=== PATIENT | female | born 1990 | race Caucasian/White ===

== ENCOUNTER 2017-08-17 12:47 | Emergency (ER) | payer MEDICAID ==
[2015-05-02 11:10] VITALS: BMI 24.2
[~2017-08-17 12:47] MED LIST: AMBIEN10 MG PO; BUSPAR5 MG PO; DEMEROL50 MG PO; HYDROCODONE-APA1 TAB PO; IBUPROFEN600 MG PO; PRENATAL COMPLE1 TAB PO; ZOLOFT25 MG PO
== END 2017-08-17 17:28 | disposition home or self-care (01) ==
LOC: D.ER 12:47
DX: R09.1 Pleurisy (principal); F17.200 Nicotine dependence, unspecified, uncomplicated; R07.9 Chest pain, unspecified; R05 Cough

== ENCOUNTER → 2019-05-11 08:51 | Outpatient (CLI) | payer MEDICAID ==
[2015-05-02 11:10] VITALS: BMI 24.2
== END | disposition home or self-care (01) ==
LOC: D.US 08:51
PROVIDERS: ATTEND Emergency Medicine
DX: E04.1 Nontoxic single thyroid nodule (principal)

== ENCOUNTER 2019-07-24 08:46 | Emergency (ER) | payer MEDICAID ==
[~2019-07-24] VITALS: Ht 157.5 cm; Wt 60.8 kg
[2019-07-24 08:54] VITALS: Ht 157.5 cm; Wt 60.8 kg
[2019-07-24] MEDS ORDERED: AMOXICILLIN500 M1 PO (08:57)
[2019-07-24 09:26] LABS: BASOPHILS 0.6 % (0-2); EOSINOPHILS 2.8 % (0-7); HEMATOCRIT 40.3 % (36.0-48.0); HEMOGLOBIN 13.6 g/dL (12-16); IMMATURE GRANULOCYTES 0.4 % (0-5); LYMPHOCYTES 25.2 % (15-50); MCH 29.1 pg (26.0-34.0); MCHC 33.7 g/dL (31.0-37.0); MCV 86.1 fL (80.0-100.0); MEAN PLATELET VOLUME 9.1 fL (7.4-10.4); MONOCYTES 11.4 % (2-11); NEUTROPHILS 59.6 % (40-80); PLATELET COUNT 358 10x3/uL (130-400); RBC 4.68 10x6/uL (4.00-5.40); RDW 15.7 % (11.5-14.5)
[2019-07-24 09:34] LABS: COLOR YELLOW (YELLOW)
[2019-07-24 09:35] LABS: APPEARANCE CLEAR (CLEAR); BACTERIA MODERATE /hpf (NONE SEEN); BILIRUBIN NEGATIVE (NEGATIVE); EPITHELIAL CELLS 0-5 /hpf (0-5); GLUCOSE NEGATIVE (NEGATIVE); KETONE NEGATIVE (NEGATIVE); MUCUS <1+ /lpf (NONE SEEN); NITRITE NEGATIVE (NEGATIVE); PROTEIN NEGATIVE (NEGATIVE); RED CELLS - URINE 0-5 /hpf (0-5); SPECIFIC GRAVITY 1.015 (1.005-1.020); UROBILINOGEN NORMAL (NORMAL); WHITE CELLS - URINE RARE /hpf (0-5)
[2019-07-24 09:50] LABS: HCG URINE NEGATIVE (NEGATIVE)
[2019-07-24 09:58] LABS: ALBUMIN 4.1 g/dL (3.4-5.0); ALKALINE PHOSPHATASE 69 U/L (46-116); ALT (SGPT) 22 U/L (10-68); AMYLASE - SERUM 51 U/L (25-115); BILIRUBIN - TOTAL 0.21 mg/dL (0.2-1.3); CALC OSMOLALITY 282 mosm/kg (275-300); CALCIUM 9.5 mg/dL (8.5-10.1); CARBON DIOXIDE 27.1 mmol/L (21.0-32.0); CHLORIDE - SERUM 103 mmol/L (98-107); CREATININE - SERUM 0.8 mg/dL (0.6-1.3); GLUCOSE 88 mg/dL (74-106); LIPASE 135 U/L (73-393); POTASSIUM - SERUM 4.8 mmol/L (3.5-5.1); PROTEIN - SERUM 7.6 g/dL (6.4-8.2); SODIUM 142 mmol/L (136-145); UREA NITROGEN 14 mg/dL (7-18); eGFR NON AFRICAN AMERICAN > 90 mL/min (90-120)
[2019-07-24] MEDS ORDERED: NAPROSYN500 MG PO (10:58)
[2019-07-24] MEDS ORDERED: PREDNISONE20 MG PO (10:58)
[2019-07-24 11:12] VITALS: BP 124/79
[2019-07-24 12:20] LABS: ERYTHROCYTE SEDIMENTATION RATE 7 mm/hr (0-20)
[2019-07-28 22:06] LABS: CHLAMYDIA TRACHOMATIS, NAA Negative (Negative)
== END 2019-07-24 11:35 | disposition home or self-care (01) ==
LOC: D.ER 08:46
PROVIDERS: Family Medicine
DX: M85.38 Osteitis condensans, other site (principal); N76.0 Acute vaginitis; B96.89 Other specified bacterial agents as the cause of diseases classified elsewhere; N20.0 Calculus of kidney

== ENCOUNTER 2020-03-11 13:15 | Emergency (ER) | payer MEDICAID ==
[~2020-03-11] VITALS: Ht 157.5 cm; Wt 56.8 kg
[~2020-03-11 13:15] MED LIST changes: +AMOXICILLIN500 M1 PO; +NAPROSYN500 MG PO; +PREDNISONE20 MG PO
[2020-03-11 13:29] VITALS: Ht 157.5 cm; Wt 56.8 kg
[2020-03-11 13:56] LABS: UDS - AMPHET POSITIVE QUAL (NEGATIVE); UDS - BARB NEGATIVE QUAL (NEGATIVE); UDS - BENZO NEGATIVE QUAL (NEGATIVE); UDS - COCAINE NEGATIVE QUAL (NEGATIVE); UDS - OPIATE NEGATIVE QUAL (NEGATIVE); UDS - PCP NEGATIVE QUAL (NEGATIVE); UDS - THC POSITIVE QUAL (NEGATIVE)
[2020-03-11 14:13] LABS: ANION GAP 12.7 mmol/L (8-16); CALCIUM 9.2 mg/dL (8.5-10.1); CARBON DIOXIDE 26.8 mmol/L (21.0-32.0); POTASSIUM - SERUM 3.5 mmol/L (3.5-5.1)
[2020-03-11 14:20] LABS: ALBUMIN 4.5 g/dL (3.4-5.0); BILIRUBIN - TOTAL 0.81 mg/dL (0.2-1.3); PROTEIN - SERUM 8.5 g/dL (6.4-8.2)
[2020-03-11 14:37] LABS: BACTERIA MANY /hpf (NEGATIVE); BILIRUBIN NEGATIVE (NEGATIVE); EPITHELIAL CELLS 0-5 /hpf (0-5); GLUCOSE NEGATIVE (NEGATIVE); KETONE LARGE mg/dL (NEGATIVE); NITRITE POSITIVE (NEGATIVE); SPECIFIC GRAVITY 1.025 (1.005-1.020); UROBILINOGEN NORMAL (NORMAL); WHITE CELLS - URINE 0-5 /hpf (NEGATIVE)
[2020-03-11 15:10] VITALS: BP 155/96
[2020-03-11 15:27] LABS: BASOPHILS 0.4 % (0-2); EOSINOPHILS 0.7 % (0-7); HEMATOCRIT 44.4 % (36.0-48.0); HEMOGLOBIN 14.7 g/dL (12-16); IMMATURE GRANULOCYTES 0.3 % (0-5); MCH 30.6 pg (26.0-34.0); MCHC 33.1 g/dL (31.0-37.0); MCV 92.3 fL (80.0-100.0); MEAN PLATELET VOLUME 9.3 fL (7.4-10.4); MONOCYTES 12.3 % (2-11); NEUTROPHILS 63.3 % (40-80); PLATELET COUNT 381 10x3/uL (130-400); RBC 4.81 10x6/uL (4.00-5.40); RDW 13.7 % (11.5-14.5); WBC 13.7 10x3/uL (4.8-10.8)
[2020-03-11] MEDS ORDERED: MACROBID100 MG PO (15:27)
== END 2020-03-11 15:14 | disposition home or self-care (01) ==
LOC: D.ER 13:15
PROVIDERS: Emergency Medicine
DX: R44.0 Auditory hallucinations (principal); R44.1 Visual hallucinations; F15.10 Other stimulant abuse, uncomplicated

== ENCOUNTER 2020-05-16 09:56 | Inpatient (IN) | payer MEDICAID ==
[~2020-05-16] VITALS: Ht 157.5 cm; Wt 59.1 kg
[~2020-05-16 09:56] MED LIST changes: +MACROBID100 MG PO
[2020-05-16] MEDS ORDERED: BENZTROPINE MESY1 MG PO (10:09)
[2020-05-16] MEDS ORDERED: GEODON40 MG PO (10:09)
[2020-05-16] MEDS ORDERED: ATIVAN1 MG PO (10:09)
[2020-05-16 10:30] LABS: HEMATOCRIT 36.7 % (36.0-48.0); HEMOGLOBIN 12.1 g/dL (12-16); MCH 29.3 pg (26.0-34.0); MCV 88.9 fL (80.0-100.0); MEAN PLATELET VOLUME 8.3 fL (7.4-10.4); PLATELET COUNT 409 10x3/uL (130-400); RBC 4.13 10x6/uL (4.00-5.40); RDW 13.4 % (11.5-14.5); WBC 15.3 10x3/uL (4.8-10.8)
[2020-05-16 10:35] LABS: HCG URINE NEGATIVE (NEGATIVE)
[2020-05-16 10:43] LABS: BACTERIA FEW /hpf (NEGATIVE); BILIRUBIN NEGATIVE (NEGATIVE); EPITHELIAL CELLS 0-5 /hpf (0-5); GLUCOSE NEGATIVE (NEGATIVE); KETONE NEGATIVE (NEGATIVE); NITRITE NEGATIVE (NEGATIVE); RED CELLS - URINE 0-5 /hpf (0-5); UROBILINOGEN 4 mg/dL (NORMAL)
[2020-05-16 10:45] LABS: ALBUMIN 2.7 g/dL (3.4-5.0); ALKALINE PHOSPHATASE 95 U/L (30-120); ALT (SGPT) 19 U/L (10-68); AMYLASE - SERUM 21 U/L (25-115); BILIRUBIN - TOTAL 0.44 mg/dL (0.2-1.3); CALC OSMOLALITY 269 mosm/kg (275-300); CALCIUM 9.3 mg/dL (8.5-10.1); CARBON DIOXIDE 32.4 mmol/L (21.0-32.0); CHLORIDE - SERUM 94 mmol/L (98-107); GLUCOSE 139 mg/dL (74-106); PROTEIN - SERUM 7.8 g/dL (6.4-8.2); SODIUM 135 mmol/L (136-145); TROPONIN-I < 0.017 ng/mL (0.000-0.060); UREA NITROGEN 7 mg/dL (7-18); eGFR NON AFRICAN AMERICAN 70 mL/min (90-120)
[2020-05-16 10:47] LABS: LIPASE 46 U/L (73-393)
[2020-05-16 10:48] LABS: POTASSIUM - SERUM 2.9 mmol/L (3.5-5.1)
[2020-05-16] MEDS ORDERED: PYRIDIUM100 MG PO (12:14)
[2020-05-16] MEDS ORDERED: CIPRO500 MG PO (12:14)
--- NOTE | 2020-05-16 13:50 | NUR ---
PT ADMITTED TO ROOM 2208 FROM ER. RESP EVEN AND UNLABORED. LUNCH TRAY BROUGHT INTO ROOM VIA DIETARY. PT IMMEDIATELY REQUEST IV TO RIGHT AC BE DISCONTINUED AND MOVED TO LEFT ARM. IV RESITED TO LEFT FOREARM X 2 STICKS. 20G WITH GOOD BLOOD RETURN, EASILY FLUSHED. NS @ 100ML/HR PUT TO INFUSE VIA PUMP. PT REPORTS PAIN TO RIGHT FLANK AND ACROSS BACK, BUT MORE PAIN TO RIGHT FLANK X 3-4 DAYS. DENIES NAUSEA OR VOMITING. ORIENTED TO BED, CL AND ROOM. DENIES FURTHER NEEDS AT THIS TIME. CL WITHIN REACH. ENCOURAGED TO CALL WITH NEEDS. CONTINUE POC
[2020-05-16 14:23] VITALS: BP 112/62; Ht 157.5 cm; Wt 59.1 kg
[2020-05-16 16:15] VITALS: BP 106/62
--- NOTE | 2020-05-16 16:29 | NUR ---
ENTERED PT ROOM, EDUCATED PT REGARDING ORDERS FOR IN AND OUT CATH FOR URINE SAMPLE FOR CULTRE. PT IMMEDIATELY REFUSES, STATING "I HAVE BEEN THROUGH THIS BEFORE AND I AM NOT DOING IT AGAIN." ATTEMPTED TO EDUCATE PT REGARDING NEED FOR I&O CATH. HOWEVER, PT CONTINUED TO RAMBLE ON REASONING TO WHY SHE WOULD NOT ALLOW IN AND OUT CATH. CONTACTED JA[facility] REGARDING PT REFUSAL. NURSE INSTRUCTED TO WASH PT HAN AREA WELL AND CATCH A URINE MIDSTREAM. INSTRUCTED PT OF ORDERS FOR THIS. PT BECOMES AGITATED AND TEARFUL STATES "NO ONE IS TOUCHING ME DOWN THERE. I HAVE BEEN RAPED 5 OR SIX TIMES BY MEN AND WOMEN BOTH AND NO ONE IS TOUCHING ME. NO ONE! IM AN ADULT I KNOW HOW TO WASH AND CATCH A URINE YOU DON'T HAVE TO DO IT FOR ME!" INSTRUCTED PT TO CALL WHEN URGE TO URINATE AND STAFF WOULD ASSIST. CL WITHIN REACH.
--- NOTE | 2020-05-16 20:20 | NUR ---
LYING IN BED. ALERT AND ORIENTED X4. RESP EVEN AND NONLABORED. ANXIOUS, RESTLESS, IRRITABLE WITH STAFF. REFUSED GEODON, ATIVAN AND COLACE. STATES SHE ALREADY TOOK THE ATIVAN. ASKED WHEN AND SHE STATED, "I TOOK IT OUT OF MY PURSE A LITTLE WHILE AGO." INFORMED PT THAT SHE WAS NOT ALLOWED TO TAKE OWN MEDS AND THAT THE MEDS WOULD NEED TO BE SENT HOME OR SENT TO PHARMACY. SHE GAVE STAFF ZIPRASIDONE, LORAZEPAM AND BENTROPINE AND MEDS WERE COUNTED PER THIS DRAUGHTSMAN AND SOLE CLAY AND PLACED IN MEDICATION ENVELOPE FOR PHARMACY TO KEEP. PT HAS NS @ 100 MLHR INFUSING IN LT FOREARM WITHOUT DIFF. PT ALSO REFUSED BENADRYL FOR ITCHING. RATES PAIN IN RT FLANK 8. SR ELEVATED X2. CL IN REACH.
[2020-05-16 20:27] VITALS: BP 96/64
[2020-05-16 21:34] LABS: UDS - AMPHET NEGATIVE QUAL (NEGATIVE); UDS - BARB NEGATIVE QUAL (NEGATIVE); UDS - BENZO NEGATIVE QUAL (NEGATIVE); UDS - COCAINE NEGATIVE QUAL (NEGATIVE); UDS - OPIATE POSITIVE QUAL (NEGATIVE); UDS - PCP NEGATIVE QUAL (NEGATIVE); UDS - THC POSITIVE QUAL (NEGATIVE)
[2020-05-17] VITALS (7 sets, daily range): BP systolic 97–111; BP diastolic 46–74
--- NOTE | 2020-05-17 03:05 | NUR ---
RESTING WITH EYES CLOSED. RESP EVEN AND NONLABORED. NO DISTRESS. CL IN REACH.
--- NOTE | 2020-05-17 03:40 | NUR ---
REQUESTS PAIN MED. STATES, "I DONT WANT THE HYDROCODONE. IT DOESNT WORK." MEDICATED WITH DILAUDID FOR C/O RT FLANK PAIN. REFUSED ALL MEDS THIS SHIFT EXCEPT FOR PAIN MEDS. CL IN REACH. NO DISTRESS.
[2020-05-17 07:45] LABS: BASOPHILS 0.2 % (0-2); EOSINOPHILS 1.3 % (0-7); HEMATOCRIT 29.8 % (36.0-48.0); IMMATURE GRANULOCYTES 0.4 % (0-5); LYMPHOCYTES 19.6 % (15-50); MCHC 32.2 g/dL (31.0-37.0); MEAN PLATELET VOLUME 8.5 fL (7.4-10.4); MONOCYTES 11.9 % (2-11); NEUTROPHILS 66.6 % (40-80); PLATELET COUNT 348 10x3/uL (130-400); RBC 3.31 10x6/uL (4.00-5.40); RDW 14.1 % (11.5-14.5)
[2020-05-17 07:56] LABS: HEMOGLOBIN 9.6 g/dL (12-16); WBC 11.1 10x3/uL (4.8-10.8)
[2020-05-17 08:24] LABS: ALBUMIN 2.1 g/dL (3.4-5.0); ALKALINE PHOSPHATASE 71 U/L (30-120); ALT (SGPT) 17 U/L (10-68); CALC OSMOLALITY 280 mosm/kg (275-300); CALCIUM 7.9 mg/dL (8.5-10.1); CARBON DIOXIDE 28.7 mmol/L (21.0-32.0); CHLORIDE - SERUM 107 mmol/L (98-107); GLUCOSE 105 mg/dL (74-106); SODIUM 142 mmol/L (136-145); UREA NITROGEN 6 mg/dL (7-18)
[2020-05-17 08:38] LABS: BILIRUBIN - TOTAL 0.12 mg/dL (0.2-1.3)
[2020-05-17 08:39] LABS: CREATININE - SERUM 0.7 mg/dL (0.6-1.3); POTASSIUM - SERUM 3.5 mmol/L (3.5-5.1); PROTEIN - SERUM 5.4 g/dL (6.4-8.2); eGFR NON AFRICAN AMERICAN > 90 mL/min (90-120)
--- NOTE | 2020-05-17 20:05 | NUR ---
SITTING UP IN BED. ALERT AND ORIENTED X4. C/O PAIN IN FLANK RATING 7. NOT TIME FOR DILAUDID YET. NS WITH 20 MEQ KCL @ 100 ML/HR INFUSING IN LT FOREARM. REFUSED SCDS. RESP EVEN AND NONLABORED. ATTN SEEKING AND IRRITABLE. SR ELEVATED X2. CL IN REACH.
--- NOTE | 2020-05-17 21:10 | NUR ---
MEDICATED WITH DILAUDID FOR C/O FLANK PAIN. CL IN REACH.
[2020-05-18] VITALS: BP 99/64
--- NOTE | 2020-05-18 02:23 | NUR ---
HAS RESTED WELL TONIGHT. LYING IN BED WITH EYES CLOSED. RESP NONLABORED. NO DISTRESS. CL IN REACH.
--- NOTE | 2020-05-18 03:13 | NUR ---
MEDICATED WITH DILAUDID FOR C/O FLANK PAIN. CL IN REACH.
[2020-05-18 04:00] VITALS: BP 111/55
[2020-05-18 05:22] LABS: BASOPHILS 0.1 % (0-2); HEMATOCRIT 29.1 % (36.0-48.0); HEMOGLOBIN 9.3 g/dL (12-16); IMMATURE GRANULOCYTES 0.4 % (0-5); LYMPHOCYTES 22.9 % (15-50); MCH 29.1 pg (26.0-34.0); MCV 90.9 fL (80.0-100.0); MEAN PLATELET VOLUME 9.1 fL (7.4-10.4); MONOCYTES 10.3 % (2-11); NEUTROPHILS 64.3 % (40-80); PLATELET COUNT 401 10x3/uL (130-400); RDW 14.3 % (11.5-14.5); WBC 11.3 10x3/uL (4.8-10.8)
[2020-05-18 05:55] LABS: % SATURATION 14 % (15-55); IRON 25 ug/dl (35-150); TOTAL IRON BIND CAPACITY 178 ug/dl (260-445); UNSAT IRON BIND CAPACITY 153 ug/dl (150-375)
[2020-05-18 06:22] LABS: ALKALINE PHOSPHATASE 69 U/L (30-120); ALT (SGPT) 17 U/L (10-68); BILIRUBIN - TOTAL 0.12 mg/dL (0.2-1.3); CALC OSMOLALITY 275 mosm/kg (275-300); CARBON DIOXIDE 29.6 mmol/L (21.0-32.0); CHLORIDE - SERUM 106 mmol/L (98-107); CREATININE - SERUM 0.7 mg/dL (0.6-1.3); FERRITIN 111 ng/mL (3-244); GLUCOSE 91 mg/dL (74-106); POTASSIUM - SERUM 3.5 mmol/L (3.5-5.1); PROTEIN - SERUM 5.9 g/dL (6.4-8.2); SODIUM 140 mmol/L (136-145); eGFR NON AFRICAN AMERICAN > 90 mL/min (90-120)
--- NOTE | 2020-05-18 06:23 | NUR ---
RESTING QUIETLY WITH EYES CLOSED. NO DISTRESS. CL IN REACH.
[2020-05-18 06:28] LABS: UREA NITROGEN 4 mg/dL (7-18)
[2020-05-18 09:10] VITALS: BP 106/68
[2020-05-18] MEDS ORDERED: NICODERM CQ1 EAC1 TRANSDERM (10:54)
[2020-05-18] MEDS ORDERED: LEVAQUIN750 MG PO (10:55)
[2020-05-18] MEDS ORDERED: HYDROCODON-ACE1 EAC2 PO ×2 (12:10→12:13)
--- NOTE | 2020-05-18 13:39 | MORECARE ---
CASE MANAGEMENT DISCHARGE SUMMARY PATIENT: ILYA DONNELLY UNIT: [id number] ADM DATE: 05/16/20 AGE: 30 : [birth year] SEX: F ROOM/BED: D.2200 AUTHOR: JOSE MENDEZ PHYSICIAN: REFERRING PHYSICIAN: JOSSE MUHAMMAD DO DATE OF SERVICE: 05/18/20 Discharge Plan Patient Name: ILYA DONNELLY Facility: [facility]:[place] : 1990 Planned Disposition: Home or Self Care Anticipated Discharge Date: Discharge Date: Expected LOS: Initial Reviewer: [email or web address] Initial Review Date: 05/16/2020 Generated: 05/18/20 2:38 pm DCPIA - Discharge Planning Initial Assessment Updated by [email or web address]: Naila Hardin on 05/18/20 1:38 pm * Is the patient Alert and Oriented? Yes * How many steps to enter\exit or inside your home? * PCP [facility] * Pharmacy [facility] [address] * Preadmission Environment Home Alone * ADLs Independent * Equipment None * Additional services required to return to the preadmission environment? No * Can the patient safely return to the preadmission environment? Yes * Has this patient been hospitalized within the prior 30 days at any hospital? No Patient Name: ILYA DONNELLY Page [id number] at 1339 All edits/amendments must be made on the electronic document DICTATION DATE: 05/18/201338 PUMP TENDER: MIGUEL 05/18/20 1339 RPT#: [id number] DC DATE: STATUS: ADM IN [facility] [address] [place] [address] END OF REPORT
--- NOTE | 2020-05-18 13:47 | MORECARE ---
CASE MANAGEMENT DISCHARGE SUMMARY PATIENT: ILYA DONNELLY UNIT: [id number] ADM DATE: 05/16/20 AGE: 30 : [birth year] SEX: F ROOM/BED: D.9944 AUTHOR: ANDREADOC PHYSICIAN: REFERRING PHYSICIAN: JOSSE MUHAMMAD DO DATE OF SERVICE: 05/18/20 Discharge Plan Patient Name: ILYA DONNELLY Facility: [facility]:[place] : 1990 Planned Disposition: Home or Self Care Anticipated Discharge Date: Discharge Date: Expected LOS: Initial Reviewer: [email or web address] Initial Review Date: 05/16/2020 Generated: 05/18/20 2:46 pm Comments DCP- Discharge Planning Updated by [id number]: Naila Hardin on 05/18/20 12:[address] Patient Name: ILYA DONNELLY Admission Status: ER Accout number: [id number] Admission Date: 05-16-2020 : 1990 Admission Diagnosis: Attending: JOSSE MUHAMMAD Current LOS: 2 Anticipated DC Date: Planned Disposition: Home or Self Care Primary Insurance: MEDICAID [place] Discharge Planning Comments: CM met with patient to complete initial dc planning assessment. CM educated patient on the CM role and verbal consent given by patient to complete assessment. Patient lives at home alone where she is independent with her care. At discharge patient plans to return home and feels this is a safe discharge. She is unsure who will take her home, she has friends and family. CM discussed availability of home health, rehab services, and medical equipment. Patient denied known discharge needs at this time. CM will continue to follow and will assist as needed with dc plans/needs. Heel Seater: Naila Hardin DCPIA - Discharge Planning Initial Assessment Updated by [email or web address]: Naila Hardin on 05/18/20 1:38 pm * Is the patient Alert and Oriented? Yes * How many steps to enter\exit or inside your home? * PCP [facility] * Pharmacy [facility] [address] * Preadmission Environment Home Alone * ADLs Independent * Equipment None * Additional services required to return to the preadmission environment? No * Can the patient safely return to the preadmission environment? Yes * Has this patient been hospitalized within the prior 30 days at any hospital? No Last DP export: 05/18/20 12:39 p Patient Name: ILYA DONNELLY Page [phone] at 1347 All edits/amendments must be made on the electronic document DICTATION DATE: 05/18/201346 PROPOSAL REP: MIGUEL 05/18/20 1347 RPT#: [id number] DC DATE: STATUS: ADM IN [facility] [address] [place] [address] END OF REPORT
--- NOTE | 2020-05-19 09:06 | MORECARE ---
CASE MANAGEMENT DISCHARGE SUMMARY PATIENT: ILYA DONNELLY UNIT: [id number] ADM DATE: 05/16/20 AGE: 30 : [birth year] SEX: F ROOM/BED: D.7722 AUTHOR: ANDREA,DOC PHYSICIAN: REFERRING PHYSICIAN: JOSSE MUHAMMAD DO DATE OF SERVICE: 05/19/20 Discharge Plan Patient Name: ILYA DONNELLY Facility: [facility]:[place] : 1990 Planned Disposition: Home or Self Care Anticipated Discharge Date: Discharge Date: 05/18/2020 Expected LOS: 0 Initial Reviewer: [email or web address] Initial Review Date: 05/16/2020 Generated: 05/19/20 10:05 am Comments DCP- Discharge Planning Updated by [id number]: Naila Hardin on 05/18/20 12:[address] Patient Name: ILYA DONNELLY Admission Status: ER Accout number: [id number] Admission Date: 05-16-2020 : 1990 Admission Diagnosis: Attending: JOSSE MUHAMMAD Current LOS: 2 Anticipated DC Date: Planned Disposition: Home or Self Care Primary Insurance: MEDICAID [place] Discharge Planning Comments: CM met with patient to complete initial dc planning assessment. CM educated patient on the CM role and verbal consent given by patient to complete assessment. Patient lives at home alone where she is independent with her care. At discharge patient plans to return home and feels this is a safe discharge. She is unsure who will take her home, she has friends and family. CM discussed availability of home health, rehab services, and medical equipment. Patient denied known discharge needs at this time. CM will continue to follow and will assist as needed with dc plans/needs. Lace Winder: Naila Hardin DCPIA - Discharge Planning Initial Assessment Updated by [email or web address]: Naila Hardin on 05/18/20 1:38 pm * Is the patient Alert and Oriented? Yes * How many steps to enter\exit or inside your home? * PCP [facility] * Pharmacy [facility] [address] * Preadmission Environment Home Alone * ADLs Independent * Equipment None * Additional services required to return to the preadmission environment? No * Can the patient safely return to the preadmission environment? Yes * Has this patient been hospitalized within the prior 30 days at any hospital? No Last DP export: 05/18/20 12:47 p Patient Name: ILYA DONNELLY Page [phone] at 0906 All edits/amendments must be made on the electronic document DICTATION DATE: 05/19/20904 LOCK INSTALLER: MIGUEL 05/19/20904 RPT#: [id number] DC DATE:05/18/20 STATUS: DIS IN [facility] [address] [place] [address] END OF REPORT
== END 2020-05-18 16:43 | disposition home or self-care (01) | DRG 690 ==
LOC: D.ER 09:56 → D.MS 13:00
PROVIDERS: Family Medicine; ADMIT Family Medicine; ATTEND Family Medicine
DX: N10 Acute pyelonephritis (principal); E87.1 Hypo-osmolality and hyponatremia; F17.203 Nicotine dependence unspecified, with withdrawal; E86.0 Dehydration; E87.6 Hypokalemia; D72.829 Elevated white blood cell count, unspecified; F43.10 Post-traumatic stress disorder, unspecified; F20.9 Schizophrenia, unspecified; D50.9 Iron deficiency anemia, unspecified; E03.9 Hypothyroidism, unspecified; F31.9 Bipolar disorder, unspecified; F41.8 Other specified anxiety disorders

== ENCOUNTER 2020-07-05 16:32 | Emergency (ER) | payer MEDICAID ==
[~2020-07-05] VITALS: Ht 157.5 cm; Wt 59.1 kg
[~2020-07-05 16:32] MED LIST changes: +ATIVAN1 MG PO; +BENZTROPINE MESY1 MG PO; +CIPRO500 MG PO; +GEODON40 MG PO; +HYDROCODON-ACE1 EAC2 PO; +LEVAQUIN750 MG PO; +NICODERM CQ1 EAC1 TRANSDERM; +PYRIDIUM100 MG PO
[2020-07-05 17:13] VITALS: BP 128/75; Ht 157.5 cm; Wt 59.1 kg
== END 2020-07-05 18:59 | disposition home or self-care (01) ==
LOC: D.ER 16:32
DX: F15.10 Other stimulant abuse, uncomplicated (principal); S02.5XXA Fracture of tooth (traumatic), initial encounter for closed fracture; Z71.1 Person with feared health complaint in whom no diagnosis is made; E03.9 Hypothyroidism, unspecified; X58.XXXA Exposure to other specified factors, initial encounter

== ENCOUNTER 2020-07-05 18:06 | Emergency (ER) | payer MEDICAID ==
[~2020-07-05] VITALS: Ht 157.5 cm; Wt 59.1 kg
[2020-07-05 18:33] VITALS: BP 109/75; Ht 157.5 cm; Wt 59.1 kg
== END 2020-07-05 19:40 | disposition home or self-care (01) ==
LOC: D.ER 18:06
DX: F15.129 Other stimulant abuse with intoxication, unspecified (principal); F22 Delusional disorders

== ENCOUNTER 2020-07-08 18:23 | Emergency (ER) | payer MEDICAID ==
[~2020-07-08] VITALS: Ht 157.5 cm; Wt 59.1 kg
[2020-07-08 18:26] VITALS: Ht 157.5 cm; Wt 59.1 kg
[2020-07-08 18:54] LABS: UDS - AMPHET NEGATIVE QUAL (NEGATIVE); UDS - BARB NEGATIVE QUAL (NEGATIVE); UDS - BENZO NEGATIVE QUAL (NEGATIVE); UDS - COCAINE NEGATIVE QUAL (NEGATIVE); UDS - OPIATE NEGATIVE QUAL (NEGATIVE); UDS - PCP NEGATIVE QUAL (NEGATIVE); UDS - THC POSITIVE QUAL (NEGATIVE)
[2020-07-08 19:08] LABS: BILIRUBIN NEGATIVE (NEGATIVE); GLUCOSE NEGATIVE (NEGATIVE); KETONE NEGATIVE (NEGATIVE); NITRITE NEGATIVE (NEGATIVE); UROBILINOGEN NORMAL (NORMAL)
[2020-07-08 19:15] LABS: EPITHELIAL CELLS OCC /hpf (0-5); WHITE CELLS - URINE 0-5 /hpf (NEGATIVE)
[2020-07-08 19:16] LABS: HCG URINE NEGATIVE (NEGATIVE)
[2020-07-08 19:22] LABS: BASOPHILS 0.3 % (0-2); EOSINOPHILS 1.8 % (0-7); HEMATOCRIT 37.9 % (36.0-48.0); HEMOGLOBIN 12.2 g/dL (12-16); IMMATURE GRANULOCYTES 0.1 % (0-5); MCH 29.6 pg (26.0-34.0); MCHC 32.2 g/dL (31.0-37.0); MEAN PLATELET VOLUME 9.3 fL (7.4-10.4); MONOCYTES 10.4 % (2-11); NEUTROPHILS 56.4 % (40-80); RBC 4.12 10x6/uL (4.00-5.40); WBC 7.8 10x3/uL (4.8-10.8)
[2020-07-08 19:32] LABS: PLATELET COUNT 289 10x3/uL (130-400)
[2020-07-08 19:34] LABS: CALC OSMOLALITY 283 mosm/kg (275-300); CALCIUM 8.2 mg/dL (8.5-10.1); CARBON DIOXIDE 31.2 mmol/L (21.0-32.0); CHLORIDE - SERUM 106 mmol/L (98-107); CREATININE - SERUM 0.8 mg/dL (0.6-1.3); GLUCOSE 77 mg/dL (74-106); SODIUM 143 mmol/L (136-145); UREA NITROGEN 12 mg/dL (7-18); eGFR NON AFRICAN AMERICAN 90 mL/min (90-120)
[2020-07-08 19:40] LABS: ALBUMIN 3.8 g/dL (3.4-5.0); ALKALINE PHOSPHATASE 59 U/L (30-120); ALT (SGPT) 12 U/L (10-68); BILIRUBIN - TOTAL 0.13 mg/dL (0.2-1.3); MAGNESIUM - SERUM 2.1 mg/dL (1.8-2.4); VALPROIC ACID (DEPAKOTE) 49.1 ug/mL (50.0-100.0)
[2020-07-08 20:05] VITALS: BP 112/63
== END 2020-07-09 02:00 ==
LOC: D.ER 18:23
PROVIDERS: Family Medicine
DX: R44.0 Auditory hallucinations (principal); F32.9 Major depressive disorder, single episode, unspecified; R45.851 Suicidal ideations

== ENCOUNTER 2020-08-06 13:24 | Emergency (ER) | payer MEDICAID ==
[~2020-08-06] VITALS: Ht 157.5 cm; Wt 56.8 kg
[2020-08-06 13:27] VITALS: Ht 157.5 cm; Wt 56.8 kg
[2020-08-06 13:52] LABS: BASOPHILS 0.6 % (0-2); HEMOGLOBIN 13.7 g/dL (12-16); IMMATURE GRANULOCYTES 0.4 % (0-5); LYMPHOCYTES 31.9 % (15-50); MCH 29.7 pg (26.0-34.0); MCHC 33.4 g/dL (31.0-37.0); MCV 88.9 fL (80.0-100.0); MEAN PLATELET VOLUME 8.8 fL (7.4-10.4); MONOCYTES 11.8 % (2-11); NEUTROPHILS 53.3 % (40-80); PLATELET COUNT 300 10x3/uL (130-400); RBC 4.61 10x6/uL (4.00-5.40); RDW 15.5 % (11.5-14.5); WBC 12.3 10x3/uL (4.8-10.8)
[2020-08-06 14:07] LABS: CALCIUM 9.1 mg/dL (8.5-10.1); CARBON DIOXIDE 26.4 mmol/L (21.0-32.0); POTASSIUM - SERUM 3.4 mmol/L (3.5-5.1)
[2020-08-06 14:12] LABS: ALBUMIN 4.1 g/dL (3.4-5.0); BILIRUBIN - TOTAL 0.9 mg/dL (0.2-1.3); PROTEIN - SERUM 7.9 g/dL (6.4-8.2)
[2020-08-06 14:19] LABS: HCG SERUM NEGATIVE (NEGATIVE)
[2020-08-06] MEDS ORDERED: MEDROL DOSE PACK4 MG PO (14:59)
[2020-08-06] MEDS ORDERED: AUGMENTIN 875-11 TAB PO (14:59)
[2020-08-06 16:20] VITALS: BP 135/78
== END 2020-08-06 16:21 | disposition home or self-care (01) ==
LOC: D.ER 13:24
PROVIDERS: Family Medicine
DX: R13.10 Dysphagia, unspecified (principal); E87.6 Hypokalemia; D72.829 Elevated white blood cell count, unspecified; J02.9 Acute pharyngitis, unspecified; T85.9XXA Unspecified complication of internal prosthetic device, implant and graft, initial encounter; E07.9 Disorder of thyroid, unspecified; R06.02 Shortness of breath; Z72.0 Tobacco use